=== PATIENT | female | born 2005 | race Caucasian/White ===

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

== ENCOUNTER 2024-07-20 03:30 | Emergency (ER) | payer OTHER ==
[~2024-07-20] VITALS: Ht 152.4 cm; Wt 52.2 kg
[~2024-07-20 03:30] MED LIST changes: -ACET-7756 PO; +AMOX1TAB8 PO
[2024-07-20 03:43] VITALS: BP 127/78; PULSE 82; RESP 18; TEMP 97.8; O2SAT 98
[2024-07-20 03:58] LABS: APPEARANCE,URINE CLEAR (CLEAR); BILIRUBIN,URINE NEGATIVE (NEGATIVE); BLOOD, URINE 1+ (NEGATIVE); COLOR,URINE YELLOW (YELLOW); LEUKOCYTE ESTERASE ,URINE NEGATIVE (NEGATIVE); NITRITE, URINE NEGATIVE (NEGATIVE); PROTEIN,URINE NEGATIVE (NEGATIVE); UGLUCOSE NEGATIVE (NEGATIVE); UROBILINOGEN,URINE 0.2 EU/dL (0.2 - 1)
[2024-07-20] MEDS ORDERED: IBUP-2213 PO (04:30)
[2024-07-20] MEDS ORDERED: ONDA8TAB87 PO (04:30)
[2024-07-20] MEDS ORDERED: ACET-8905 PO (04:30)
[2024-07-20] MEDS: KETOROLAC 60 MG/2 ML VIAL IM ONE (04:43)
[2024-07-20] MEDS: ONDANSETRON 4 MG ODT PO ONE (04:45)
[2024-07-20 04:56] VITALS: BP 124/80; PULSE 81; RESP 24; TEMP 98.4; O2SAT 99
== END 2024-07-20 04:56 | disposition home or self-care (01) ==
LOC: MED 03:30
DX: R10.32 Left lower quadrant pain (principal); R11.0 Nausea; R03.0 Elevated blood-pressure reading, without diagnosis of hypertension; Z87.442 Personal history of urinary calculi; Z79.899 Other long term (current) drug therapy
CPT/HCPCS: 81003; 81025; 96372; 99283; J1885; Q0162